=== PATIENT | male | born 1960 ===

== ENCOUNTER 2017-11-26 20:10 | Emergency (ER) | payer OTHER ==
[2017-11-26 20:11] VITALS: BMI 27.3
[2017-11-26 20:25] VITALS: BP 167/88; PULSE 88; RESP 18; TEMP 98.1; O2SAT 99
--- NOTE | 2017-11-26 21:12 | C.PDOC ---
History Of Present Illness 57 y/o male presents to the ER complaining of 1 episode of vomiting 30 min prior to arrival. Was in [place] and had a large meal with rice, beans, and chicken. He then rode the bus back and felt carsick, and vomited. Upon arrival to the ED patient reports feeling better. Time Seen by Provider: 11/26/17 21:01 Chief Complaint (Nursing): GI Problem History Per: Patient History/Exam Limitations: no limitations Onset/Duration Of Symptoms: Mins (x30) Current Symptoms Are (Timing): Better Context: Food Past Medical History Reviewed: Historical Data, Nursing Documentation, Vital Signs Vital Signs: Last Vital Signs Temp 98.1 F 11/26/17 20:21 Pulse 88 11/26/17 20:21 Resp 18 11/26/17 20:21 BP 167/88 H 11/26/17 20:21 Pulse Ox 99 11/27/17 01:40 - Medical History PMH: Arthritis, Diabetes (oral medication), HTN, Hypercholesterolemia Denies: Asthma, Atrial Fibrillation, CHF, COPD, Seizures Surgical History: Denies: CABG, Pacemaker Other Surgeries: Cardiac catheterization Family History: States: Unknown Family Hx Denies: CAD - Social History Hx Tobacco Use: No (Former) Hx Alcohol Use: Yes Hx Substance Use: No - Immunization History Hx Tetanus Toxoid Vaccination: No Hx Influenza Vaccination: Yes Hx Pneumococcal Vaccination: No Review Of Systems Except As Marked, All Systems Reviewed And Found Negative. Constitutional: Negative for: Fever, Chills ENT: Negative for: Throat Pain Respiratory: Negative for: Cough Gastrointestinal: Positive for: Vomiting (x1). Negative for: Abdominal Pain, Diarrhea Physical Exam - Physical Exam Appears: Non-toxic, No Acute Distress Skin: Normal Color, Warm, Dry Head: Atraumatic, Normacephalic Eye(s): bilateral: Normal Inspection, PERRL, EOMI Nose: Normal Oral Mucosa: Moist Neck: Normal ROM, Supple Chest: Symmetrical Cardiovascular: Rhythm Regular, No Murmur Respiratory: Normal Breath Sounds, No Accessory Muscle Use Gastrointestinal/Abdominal: Bowel Sounds (present), Soft, No Tenderness, No Distention Back: Normal Inspection, No CVA Tenderness Extremity: Bilateral: Atraumatic, Normal Color And Temperature, Normal ROM Neurological/Psych: Oriented x3, Normal Speech Gait: Steady ED Course And Treatment O2 Sat by Pulse Oximetry: 99 (RA) Pulse Ox Interpretation: Normal Medical Decision Making Medical Decision Making: Impression: Pt over ate rice and beans and chicken @ an [employer] restaurant, then motion sick on the bus ride home. all s/s relieved in ED, feels better, and hungry now. Pt is medically stable. No further ED intervention necessary. Will d/c home. Disposition Doctor Will See Patient In The: Office Counseled Patient/Family Regarding: Studies Performed, Diagnosis - Disposition Referrals: Clemente Borrero MD [Primary Care Provider] - Disposition: HOME/ ROUTINE Disposition Time: 21:12 Condition: GOOD Additional Instructions: dieta diabetico: 4-5 comidas [facility]. Sigue con rendon medico vaishali necessrio. Instructions: Motion Sickness, Nausea and Vomiting, Adult (DC) Forms: [facility] (Divehi) Print Language: CHINESE - POA Present On Arrival: None - Clinical Impression Clinical Impression: Motion sickness, Vomiting - Scribe Statement The provider has reviewed the documentation as recorded by the Topher Carr Provider Attestation: All medical record entries made by the Topher were at my direction and personally dictated by me. I have reviewed the chart and agree that the record accurately reflects my personal performance of the history, physical exam, medical decision making, and the department course for this patient. I have also personally directed, reviewed, and agree with the discharge instructions and disposition.
== END 2017-11-26 21:25 | disposition home or self-care (01) ==
LOC: SUPCPDRO 20:10 → C.ER 20:10
DX: T75.3XXA Motion sickness, initial encounter (principal); Y92.810 Car as the place of occurrence of the external cause; R11.10 Vomiting, unspecified; E11.9 Type 2 diabetes mellitus without complications; E78.00 Pure hypercholesterolemia, unspecified; I10 Essential (primary) hypertension